=== PATIENT | male | born 1980 | race Caucasian/White ===

== ENCOUNTER 2022-10-16 02:48 | Emergency (ER) | payer BC, OTHER ==
[~2022-10-16] VITALS: Ht 182.8 cm; Wt 104.3 kg
[2022-10-16 02:53] VITALS: BP 166/98
--- NOTE | 2022-10-16 03:02 | ED EENT ---
History of Present Illness General Chief Complaint: Oral/Throat Problems Stated Complaint: THROAT PROBLEMS History of Present Illness Date Seen by Provider: Oct 16, 2022 Time Seen by Provider: 02:59 Initial Comments 41 yr M is here with c/o left sided painful swollen lymph nodes which has been going on for the past few days. Pt states the pain has significantly increased tonight, and he has not been able to eat or drink anything due to the pain. Patient keeps drooling and has to keep going to the sink to spit. Pt is able to speak in clear sentences but has a muffled voice. Denies sore throat, cough, SOB, chest pain, nausea/ vomiting, runny nose, congestion, fever and chills. Pt is ill-tempered and not very cooperative with exam. Allergies and Home Medications Allergies Coded Allergies: No Known Drug Allergies (Unverified , 10/16/22) Patient Home Medication List Home Medication List Reviewed: Yes Clindamycin HCl (Clindamycin HCl) 300 Mg Capsule, 300 MG PO Q6H Prescribed by: ANN UMANA MD on 10/16/22 0342 Review of Systems Review of Systems Constitutional: no symptoms reported, see HPI Throat: see HPI, pain, swelling, discharge, muffled, painful swallowing Past Pkydlmw-Oedgvz-Mpofyx Hx Patient Social History Tobacco Use?: Yes Tobacco type used: Cigarettes Smoking Status: Current Everyday Smoker Substance use?: Yes Substance type: Marijuana Alcohol Use?: No Pt feels they are or have been: No Physical Exam Vital Signs Vital Signs - First Documented 10/16/22 02:53 Temp 36.8 Pulse 84 Resp 16 B/P (MAP) 166/98 (120) Pulse Ox 100 O2 Delivery Room Air Height, Weight, BMI Height: '" Weight: lbs. oz. kg; BMI Method: General Appearance: moderate distress, obese Ears: bilateral ear auricle normal, bilateral ear canal normal, bilateral ear TM normal Nose: normal inspection Mouth/Throat: excessive drooling, tonsillar swelling (fullness of left tonsillar fossa. ), voice changes Neck: full range of motion, supple, lymphadenopathy (L), tender lateral Cardiovascular: regular rate, rhythm Respiratory: lungs clear, normal breath sounds, no respiratory distress Neurologic/Psychiatric: alert, oriented x 3 Skin: normal color Progress/Results/Core Measures Results/Orders My Orders Orders - ANN UMANA MD Rapid Strep A Screen (10/16/22 03:13) Iohexol Injection (Omnipaque 350 Mg/Ml 1 (10/16/22 03:15) Di Iv Start (Assessment) .IV start (10/16/22 03:15) Received Contrast (Hold Metformin- Contr (10/16/22 03:15) Ns (Ivpb) (Sodium Chloride 0.9% Ivpb Bag (10/16/22 03:15) Clindamycin Capsule (Cleocin Capsule) (10/16/22 03:30) Medications Given in ED Current Medications Medications Dose Ordered Sig/[place] Route Start Time Stop Time Status Last Admin Dose Admin Clindamycin HCl 300 mg ONCE ONCE PO 10/16/22 03:30 10/16/22 03:34 DC 10/16/22 03:37 300 MG Vital Signs/I&O 10/16/22 02:53 Temp 36.8 Pulse 84 Resp 16 B/P (MAP) 166/98 (120) Pulse Ox 100 O2 Delivery Room Air Progress Progress Note : Progress Note 1.LEFT SIDED NECK MASS: - Differential diagnoses include Painful lymphadenopathy, paratonsillar absces/ retropharyngeal abscess, parapharyngeal abscess - Pt was advised to have a CT neck with contrast, pt has refused at this time in spite of risks and benefits being explained in detail, with potential outcomes which may include, but not limited to acute airway obstruction and , if it turns out to be a retropharyngeal abscess. It is explained to pt that oral antibiotics will not help a retropharyngeal abscess if that is what the pt has, and without a CT it will not be possible to diagnose it accurately. - Pt also refuses throat swab for rapid strep and labs. - Clinda 300mg every 6 hours for 7 days. -Follow-up with ENT and PCP within the next 2 to 3 days -Return to ER if breathing difficulty develops. -Patient was given a printout on peritonsillar abscess which was present within the EMR, and also a separate printout regarding information on retropharyngeal abscess. -The patient was seen in the ED, and treated appropriately to presentation at a specific point in time. Patient is informed that there is a possibility that disease and illness can evolve and change in acuity rapidly or slowly after patient is discharged from the ER. Precautionary advice given to the patient for immediate return to ER if symptoms worsen or do not resolve, and to seek emergency care sooner rather than later. Pt also advised on the importance of PCP follow up and compliance with management and follow up plan with PCP and/or specialist, as this is part of the management plan. Pt verbally expressed understanding. Departure Impression Primary Impression: Mass of left side of neck Disposition: HOME, SELF-CARE Condition: Unchanged Departure-Patient Inst. Referrals: NO,LOCAL PHYSICIAN (PCP/Family) Primary Care Physician Patient Instructions: OTHER, Peritonsillar Abscess, Adult (DC) Add. Discharge Instructions: - Pt was advised to have a CT neck with contrast, pt has refused at this time in spite of risks and benefits being explained in detail, with potential outcomes which may include, but not limited to acute airway obstruction and , if it turns out to be a retropharyngeal abscess. It is explained to pt that oral antibiotics will not help a retropharyngeal abscess if that is what the pt has, and without a CT it will not be possible to diagnose it accurately. - Pt also refuses throat swab for rapid strep and labs. - Clinda 300mg every 6 hours for 7 days. -Follow-up with ENT and PCP within the next 2 to 3 days -Return to ER if breathing difficulty develops. All discharge instructions reviewed with patient and/or family. Voiced understanding. Scripts Clindamycin HCl (Clindamycin HCl) 300 Mg Capsule 300 MG PO Q6H for 7 Days, #28 CAP Prov: ANN UMANA MD 10/16/22 ANN UMANA MD Oct 16, 2022 03:02
[2022-10-16] MEDS ORDERED: IOHEXOL 350 MG/ML 100 ML (OMNIPAQUE 350) VIAL IV ONE (03:15)
[2022-10-16] MEDS ORDERED: HOLD METFORMIN - RECEIVED CONTRAST 20 ML VIAL IV SCH (03:15)
[2022-10-16] MEDS ORDERED: NS 100 ML (IVPB) BAG IV ONE (03:15)
[2022-10-16] MEDS ORDERED: CLINDAMYCIN 150 MG (CLEOCIN) CAP PO ONE (03:30)
[2022-10-16] MEDS ORDERED: CLIN-144 PO ×2 (03:42→10:20)
== END 2022-10-16 03:43 | disposition home or self-care (01) ==
LOC: EDBD 02:52 → ER FS 02:52
DX: R59.0 Localized enlarged lymph nodes (principal); E66.9 Obesity, unspecified; F17.210 Nicotine dependence, cigarettes, uncomplicated; Z68.31 Body mass index [BMI] 31.0-31.9, adult; Z28.310 Unvaccinated for COVID-19
CPT/HCPCS: 99283